=== PATIENT | male | born 1960 | race Hispanic/Latino ===

== ENCOUNTER 2021-03-15 07:27 | Day surgery (SDC) | payer OTHER ==
[2021-03-15] VITALS (7 sets, daily range): BP systolic 94–143; BP diastolic 56–94
[~2021-03-15 07:27] MED LIST: 0.9%NACL 1000ML 1,000 ML IV ONE
[2021-03-15] MEDS ORDERED: PRED10TA3 PO (08:53)
[2021-03-15] MEDS ORDERED: MIDO10TA PO (08:53)
[2021-03-15] MEDS ORDERED: PANT40TA54 PO (08:53)
[2021-03-15] MEDS ORDERED: FOLI1 PO (08:53)
[2021-03-15] MEDS ORDERED: LACT10SO5 PO (08:53)
[2021-03-15] MEDS ORDERED: INSULIN SQ (08:53)
[2021-03-15] MEDS ORDERED: PROPOFOL 10 MG/ML 20ML VIAL IV ONE ×3 (09:24→09:58)
== END 2021-03-15 11:00 | disposition home or self-care (01) ==
LOC: ENDO 07:27 → DAH 07:27 → ENDO 11:00
PROVIDERS: ATTEND Internal Medicine Gastroenterology
DX: K25.0 Acute gastric ulcer with hemorrhage (principal); Z20.822 Contact with and (suspected) exposure to COVID-19; K83.1 Obstruction of bile duct; K74.00 Hepatic fibrosis, unspecified; K76.0 Fatty (change of) liver, not elsewhere classified; I10 Essential (primary) hypertension; G93.40 Encephalopathy, unspecified; Z79.899 Other long term (current) drug therapy; Z98.890 Other specified postprocedural states
CPT/HCPCS: 43239; 43242; 82948; 87635; A4215 ×2; A4221; A4222; A4223; A4606; A4620; A4663; C9803; J2704 ×3; J7030